=== PATIENT | male | born 1970 | race Caucasian/White ===

== ENCOUNTER 2019-11-07 12:45 | Emergency (ER) | payer OTHER, SELFPAY ==
[2019-11-07 13:09] VITALS: BP 101/66; PULSE 78; RESP 16; TEMP 36.6; O2SAT 99
--- NOTE | 2019-11-07 13:17 | ED.EAR ---
HPI - Ear Problem General Chief complaint: Ear Stated complaint: right ear iritation Time Seen by Provider: 11/07/19 13:17 Source: patient and RN notes reviewed History of Present Illness HPI Narrative: Patient is a 49-year-old male that presents the urgent care with complaints of right ear pain and ringing in the ear. Patient states that he has been using Debrox and Q-tips to try to disimpact the cerumen himself. Patient states that a while back he was told to get his ears cleaned out after failing a hearing test but since then has passed it. Denies of any discharge, fevers, nausea, vomiting. No other acute complaints. No acute distress noted. Patient had a plan of care. Related Data Home Medications Medication Instructions Recorded Confirmed lisinopril 40 mg PO DAILY 11/07/19 11/07/19 metoprolol succinate 100 mg PO DAILY 11/07/19 11/07/19 Allergies Allergy/AdvReac Type Severity Reaction Status Date / Time Penicillins Allergy Mild Loss of Unverified 11/07/19 13:06 Consciousness Review of Systems Review of Systems: Narrative: CONSTITUTIONAL: Denies fever, chills, or sweats. EYES: Denies visual changes, redness, or discharge. ENT: Reports of right otalgia with tinnitus CARDIOVASCULAR: Denies chest pain, palpitations, or edema. RESPIRATORY: Denies cough or dyspnea. GASTROINTESTINAL: Denies abdominal pain, nausea, vomiting, or diarrhea. GENITOURINARY: Denies dysuria or hematuria. SKIN: Denies rash or itching. MUSCULOSKELETAL: Denies back pain, joint pain, or myalgia. NEUROLOGIC: Denies headache, numbness, or weakness. All other systems reviewed are negative, except as documented in HPI. PMFSH Comments At the time of my signature, I reviewed and agree with the nursing past medical, surgical, social, and family history. There is no relevant family history pertinent to the patient complaint. Exam Narrative: Exam Narrative: GENERAL: This is a well-nourished, well-developed patient, in no apparent distress. HEAD: normocephalic, atraumatic. EYES: PERRL. Sclera clear/white. Vision is grossly intact. EARS: External ears normal, auditory canals clear and without drainage, unable to visualize right TM due to cerumen impaction, left TMs normal without perforation. Hearing grossly intact. NOSE: External nose normal with no obvious nasal discharge, nares without redness, no rhinorrhea. THROAT: Mucous membranes moist, posterior pharynx clear. NECK: Neck supple CARDIOVASCULAR: Regular rate and rhythm without murmurs, gallops, or rubs. RESPIRATORY: Clear to auscultation. Breath sounds equal bilaterally. No wheezes, rales, or rhonchi. SKIN: warm, intact with no suspicious lesions or rash, good texture and turgor. NEURO: awake, alert, and oriented to person, place and time. There were no obvious focal neurologic abnormalities. EXTREMITIES: No clubbing, cyanosis, or edema. Course Vital Signs Vital signs: Vital Signs Temperature 97.8 F 11/07/19 13:09 Pulse Rate 78 11/07/19 13:09 Respiratory Rate 16 11/07/19 13:09 Blood Pressure 101/66 11/07/19 13:09 Pulse Oximetry 99 11/07/19 13:09 Temperature 97.8 F 11/07/19 13:09 Pulse Rate 78 11/07/19 13:09 Respiratory Rate 16 11/07/19 13:09 Blood Pressure 101/66 11/07/19 13:09 Pulse Oximetry 99 11/07/19 13:09 Reviewed Procedures Ear Wax Removal Right Ear: Cerumenolytic Used: other (50-50 percent peroxide and warm water) Results: Re-examined: removal reattempted TM Examination: TM(s) intact, normal appearance Patient Tolerated Procedure: well Complications: no problems Technique: ear canal irrigated Additional Comments: Unable to remove cerumen impaction due to depth. Cerumen is very impacted against the membrane and explained to the patient the injury to the membrane is likely to occur if we continue to try to disimpact the cerumen. Patient verbalizes understanding. Patient tolerated procedure well.
== END 2019-11-07 14:20 | disposition home or self-care (01) ==
PROVIDERS: Emergency Provider Nurse Practitioner Family; PCP Nurse Practitioner Family
DX: H61.21 Impacted cerumen, right ear (principal); I10 Essential (primary) hypertension
CPT/HCPCS: 69209; 99212; G0463

== ENCOUNTER 2021-01-19 09:52 | Outpatient (CLI) | payer OTHER, SELFPAY ==
--- NOTE | ~2021-01-19 | XR_ITS ---
XR lumbar spine 2-3V DATE: 01/19/2021 10:08 INDICATION: Low back pain, chronic for one month TECHNIQUE: AP, lateral, coned lateral lumbosacral views COMPARISON: None FINDINGS: Mild levoscoliosis of the lumbar spine. There is mild degenerative spurring throughout the spine but the lumbar and lumbosacral interspaces a re relatively preserved. No fracture or bone destruction is evident. Included T11-L5 pedicles are intact. The sacroiliac joints are normal. IMPRESSION: Mild scoliosis Mild degenerative spurring of the lumbar spine Reviewed, dictated and finalized at location A.
== END 2021-01-19 09:53 | disposition home or self-care (01) ==
PROVIDERS: PCP Nurse Practitioner Family; Visit Provider Nurse Practitioner
DX: M54.5 Low back pain (principal)
CPT/HCPCS: 72100

== ENCOUNTER 2021-04-06 08:54 | Outpatient (CLI) | payer OTHER, SELFPAY ==
--- NOTE | ~2021-04-06 | MR_ITS ---
EXAMINATION: MR lumbar spine wo con DATE: 04/06/2021 10:13 INDICATION: Low back pain. TECHNIQUE: Magnetic resonance imaging (MRI) of the lumbar spine was performed without intravenous con trast. Sequences included sagittal T2-weighted FSE, sagittal T2-weighted FS FSE, sagittal T1-weighted FSE, and axial T2-weighted FSE. COMPARISON: Lumbar spine radiographs 01/19/2021 FINDINGS: There is 6 degrees levocurvature of lumbar spine. Vertebral body heights and intervertebral disc heights are normal. The distal spinal cord signal intensity is normal. The conus medullaris is at L1. The following disc levels are specifically discussed: L1-L2: The disc does not extend beyond the endplate margin. There is mild bilateral facet joint osteo arthritis. There is no neural foraminal stenosis. There is no central canal stenosis. L2-L3: The disc is bulging. There is mild bilateral facet joint osteoarthritis. There is mild bilater al neural foraminal stenosis. There is mild central canal stenosis. L3-L4: The disc is mildly bulging. There is mild bilateral facet joint osteoarthritis. There is mild bilateral neural foraminal stenosis. There is no central canal stenosis. L4-L5: The disc is bulging. There is moderate bilateral facet joint osteoarthritis. There is mild simran ateral neural foraminal stenosis. There is mild central canal stenosis. L5-S1: The disc does not extend beyond the endplate margin. There is mild bilateral facet joint osteo arthritis. There is no neural foraminal stenosis. There is no central canal stenosis. IMPRESSION: 1. Mild lumbar spondylosis. Reviewed, dictated and finalized at location A. IMPRESSION: 1. Mild lumbar spondylosis.
== END 2021-04-06 08:55 | disposition home or self-care (01) ==
LOC: ANHIMG 08:56
PROVIDERS: PCP Nurse Practitioner Family; Visit Provider Nurse Practitioner
DX: M54.5 Low back pain (principal); M47.816 Spondylosis without myelopathy or radiculopathy, lumbar region
CPT/HCPCS: 72148

== ENCOUNTER 2021-04-24 15:00 | Outpatient (RCR) | payer OTHER, SELFPAY ==
--- NOTE | 2021-02-02 13:52 | PTOPEVAL ---
Thank you for referring Toni Valentino to [facility].? The patient is scheduled to be seen for therapy?1-2 x/week for 5 weeks. Please review, sign, date and return this plan of care SEAN. I agree with and certify that the following plan of care is medically necessary. 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 He has been off work for 2 wks. Subjective Information He reports back pain for the Query Text:As Reported By Patient/ past 3 months. He c/o pain Family with trunk motion, bending forward, getting into small spots, lifting task. He has some pain with yardwork. He has pain with ADL's. Reports increased pain with prolonged sitting, walking and standing activities. Does not perform a stretching program. Diagnostic Tests X-Rays For This Problem Yes: Mild levoscoliosis of the lumbar spine. Pain Assessment Self Report Pain Assessment Bilateral Lower Back Reported Pain Level 8 Pain Description Radiating,Sharp Lowest Pain Intensity 3 Greatest Pain Intensity 8 Pain Aggravating Factors ADL's,Bending,Exercise/ Activity,Lifting,Sitting Pain Behaviors None Pain Score Pain Score 8: Self Report Cervical and Lumbar ROM Lumbar ROM Lumbar Flexion Active [place] Query Text:Hands to: Lateral Flexion mid-thigh region Query Text:Active Hands to: Lumbar ROM 50% of Normal Lumbar Comments with pain with all motions Cervical and Lumbar Muscle Testing Lumbar Strength Upper Abdominal Strength 4-Good- Lower Abdominal Strength 3+Fair+ Lower Extremity Muscle Strength Testing General Lower Extremity Strength Gross Lower Extremity Strength grossly 4/5 simran knee and hip muscles simran hip abd: 3/5 Muscle Length Testing Muscle Length Testing Two-Joint Hip Flexor Shortened Muscles Short (R) Iliopsoas,Short (L) Iliopsoas,Short (R) Rectus Femoris,Short (L) Rectus
--- NOTE | 2021-02-12 14:01 | PCPTNOTE ---
Patient called & cancelled scheduled appointment this date and appt on 02/12/21 due to copay cost.
--- NOTE | 2021-02-27 15:40 | PCPTNOTE ---
Patient called & cancelled scheduled appointment this date due to being unable to make it in.
--- NOTE | 2021-03-06 16:12 | PTOPEVAL ---
Thank you for referring Toni Valentino to [facility].? The patient is scheduled to be seen for therapy? 1 visit every other week due to copay for 4 additional visits. Please review, sign, date and return this plan of care SEAN. I agree with and certify that the following plan of care is medically necessary. 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 He has been off work for 2 wks. Subjective Information He reports continues to have Query Text:As Reported By Patient/ trouble getting into to small Family places. He c/o pain and pulling with lifting or carrying activities. Prior to 4 months ago he could lift 20- 50# without difficulty. HE is able to tolerate walking better, but increased pain with prolonged sitting. He is able to tolerate sitting for 30 minutes. He is performing some of his HEP daily, but not all of them. Pain Assessment Self Report Pain Assessment Bilateral Lower Back Reported Pain Level 7 Pain Description Aching,Sharp,Tender on Palpation Pain Frequency Continuous Lowest Pain Intensity 2 Greatest Pain Intensity 9 Pain Aggravating Factors ADL's,Bending,Exercise/ Activity,Lifting,Sitting, Walking Cervical and Lumbar ROM Lumbar ROM Lumbar Flexion Active [place] Query Text:Hands to: Lateral Flexion superior patellar region Query Text:Active Hands to: Lumbar Comments 75% with trunk flex/ext pain with all motions Cervical and Lumbar Muscle Testing Lumbar Strength Upper Abdominal Strength 3+Fair+ Lumbar Functional Strength Comments min trunk motion with seated marching, unable to maintain trunk in midline with single leg stance Lower Extremity Muscle Strength Testing General Lower Extremity Strength Gross Lower Extremity Strength grossly 5/5 simran knee ext and flex and hip flex.
--- NOTE | 2021-04-17 12:06 | PCPTNOTE ---
Patient called & cancelled scheduled appointment this date due to schedule conflict. He rescheduled his visit.
--- NOTE | 2021-04-25 07:08 | PTOPEVAL ---
Thank you for referring Toni Valentino to [facility] Toni has attended 9 therapy visits with inconsistent attendance of therapy. He demonstrates minimal progress or change with therapy services. He is inconsistent with performing his HEP. His goals are partially achieved at this time. See detailed summary below for information on function and progress. Additional skilled therapy services at not indicated. Please review, sign, date and return this discharge summary SEAN. I agree with and certify that the following plan of care is medically necessary. 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 MRI shows mild bulging disc with Mild lumbar spondylosis. He a visit planned to see the neurosurgeon. Subjective Information Reports he continues to have Query Text:As Reported By Patient/ increased back pain. He is Family performing his HEP 3-4x/wk. He is not lifting due to pain. He is able to walk for 15 minutes then stops due to back pain. HE will have radiating symptoms with the walking. He is having trouble sleeping due to pain with only 2-3 hours of sleep. Pain Assessment Bilateral Lower Back Reported Pain Level 6 Pain Description Aching,Radiating,Sharp,Tender on Palpation,Tightness Pain Frequency Continuous Lowest Pain Intensity 2 Greatest Pain Intensity 8 Pain Aggravating Factors ADL's,Bending,Exercise/ Activity,Lifting,Sitting, Walking,Weight Bearing/ Standing Cervical and Lumbar ROM Lumbar ROM Lumbar Flexion Active [place]:Hands to: Lateral Flexion superior patellar region:Active Hands to: Lumbar Comments 75% with trunk flex/ext sharp pain with all motions, denies muscle pain Lower Extremity Muscle Strength Testing General Lower Extremity Strength Gross Lower Extremity Strength simran hip ext: 4/5 simran hip abd: 3/5 Muscle Length Testing Muscle Length Testing Two-Joint Hip Flexor Shortened Muscles Short (R
== END 2021-05-03 23:59 | disposition home or self-care (01) ==
LOC: ANHPT 15:00
PROVIDERS: PCP Nurse Practitioner Family; Visit Provider Family Medicine
DX: M54.5 Low back pain (principal)
CPT/HCPCS: 97014; 97110; 97140; 97162; G0283

== ENCOUNTER 2022-04-18 09:58 | Outpatient (CLI) | payer OTHER, SELFPAY ==
--- NOTE | 2022-04-18 11:30 | NEURO_ITS ---
Impression: # Complains of lower back pain radiating to lower extremities. # Normal nerve conduction study except absent bilateral superficial peroneal nerve responses. # Normal needle/EMG exam. # Clinical correlation recommended. Nerve Conduction Studies Anti Sensory Summary Table Stim Site NR Peak (ms) P-T Amp (?V) Site1 Site2 Delta-P (ms) Dist (cm) Amado (m/s) Left Sup Fibular Anti Sensory (Ant Lat Mall) NO RESPONSE 14 cm NR 14 cm Ant Lat Mall 16.0 Right Sup Fibular Anti Sensory (Ant Lat Mall) NO RESPONSE 14 cm NR 14 cm Ant Lat Mall 16.0 Left Sural Anti Sensory (Lat Mall) Calf 3.3 28.6 Calf Lat Mall 3.3 16.0 48 Right Sural Anti Sensory (Lat Mall) Calf 3.8 13.3 Calf Lat Mall 3.8 16.0 42 Motor Summary Table Stim Site NR Onset (ms) O-P Amp (mV) Site1 Site2 Delta-0 (ms) Dist (cm) [place]ado (m/s) Left Peroneal Motor (Vastus Med) Ankle 4.2 4.2 Popit Ankle 8.3 40.0 48 Popit 12.5 3.9 Right Peroneal Motor (Vastus Med) Ankle 4.4 6.5 Popit Ankle 7.9 38.0 48 Popit 12.3 4.8 Left Tibial Motor (Abd Beltre Brev) Ankle 5.3 3.5 Knee Ankle 9.6 45.0 47 Knee 14.9 3.5 Right Tibial Motor (Abd Beltre Brev) Ankle 4.7 4.6 Knee Ankle 9.1 41.0 45 Knee 13.8 2.9 F Wave Studies NR F-Lat (ms) L-R F-Lat (ms) Left Peroneal (Mrkrs) (EDB) 52.34 1.02 Right Peroneal (Mrkrs) (EDB) 53.36 1.02 Left Tibial (Mrkrs) (Abd Hallucis) 52.96 0.88 Right Tibial (Mrkrs) (Abd Hallucis) 52.08 0.88 EMG Side Muscle Nerve Root Ins Act Fibs Amp Dur Recrt Comment Right AntTibialis Dp Br Fibular L4-5 Nml Nml Nml Nml Nml Right Gastroc Tibial S1-2 Nml Nml Nml Nml Nml Right Fibularis Long Sup Br Fibular L5-S1 Nml Nml Nml Nml Nml Right Flex Dig Long Tibial L5-S2 Nml Nml Nml Nml Nml Right Ext Dig Brev Dp Br Fibular L5, S1 Nml Nml Nml Nml Nml Left AntTibialis Dp Br Fibular L4-5 Nml Nml Nml Nml Nml Left Gastroc Tibial S1-2 Nml Nml Nml Nml Nml Left Fibularis Long Sup Br Fibular L5-S1 Nml Nml Nml Nml Nml Left Flex Dig Long Tibial L5-S2 Nml Nml Nml Nml Nml Left Ext Dig Brev Dp Br Fibular L5, S1 Nml Nml Nml Nml Nml MTDD
== END 2022-04-18 09:59 | disposition home or self-care (01) ==
LOC: ANHNEURO 10:01
PROVIDERS: PCP Family Medicine; Visit Provider Nurse Practitioner Family
DX: M54.50 Low back pain, unspecified (principal)
CPT/HCPCS: 95886; 95910

== ENCOUNTER 2022-07-07 20:49 | Emergency (ER) | payer OTHER, SELFPAY ==
[2022-07-07 20:50] VITALS: BP 160/102; PULSE 71; RESP 20; TEMP 36.1; O2SAT 100
[2022-07-07] MEDS: CLINDAMYCIN HCL 150 MG CAP 600 MG PO (21:11)
--- NOTE | 2022-07-07 21:37 | ED.DENTAL ---
HPI - Dental/Oral General Chief complaint: Dental/Oral <Tuyet Mack PA-C - Last Filed: 07/08/22 01:52> Stated complaint: jaw pain/ tooth pain <LATRICE Goldman Last Filed: 07/08/22 01:52> Time Seen by Provider: 07/07/22 20:55 <LATRICE Goldman Last Filed: 07/08/22 01:52> History of Present Illness HPI Narrative: Patient is a 51-year-old male here for evaluation of acute on chronic right upper dental pain. Patient states that his tooth has been aching for years , but has been increased in severity over the past 3 months. Over the past 2 days, his pain has been intolerable. He has been taking ibuprofen and Tylenol in addition to [place] without significant relief. Denies any trismus, drooling, fevers, chills, nausea or vomiting. He does have a dentist but has not been in contact with him because he does not have insurance. <LATRICE Goldman Last Filed: 07/08/22 01:52> Related Data Home medications: Home Medications Medication Instructions Recorded Confirmed fluticasone propionate 50 1 spray intranasal DAILY PRN 01/06/20 02/20/22 mcg/actuation nasal spray,suspension (Allergy Relief (fluticasone)) gabapentin 300 mg capsule 300 mg PO QHS 02/20/22 02/20/22 hydrocodone 5 mg-acetaminophen 325 1 tablet PO Q12H PRN 02/20/22 02/20/22 mg tablet nortriptyline 25 mg capsule 25 mg PO DAILY 02/20/22 02/20/22 <LATRICE Goldman Last Filed: 07/08/22 01:52> Allergies/adverse reactions: Allergies Allergy/AdvReac Type Severity Reaction Status Date / Time Penicillins Allergy Mild Loss of Verified 07/07/22 21:03 Consciousness <LATRICE Goldman Last Filed: 07/08/22 01:52> Review of Systems Review of Systems: Gen.: Denies fevers or chills Eyes: Denies eye pain or visual change ENT: Reports dental pain. Respiratory: Denies shortness of breath or cough CV: Denies chest pain or palpitations GI: Denies abdominal pain nausea, emesis or diarrhea denies burning, urgency, frequency or hematuria Musculoskeletal: Denies back pain or muscle pain Neuro: Denies numbness, tingling, weakness or focal weakness Skin: Denies rash Except as documented, all other systems reviewed and negative <Tuyet Mack PA-C - Last Filed: 07/08/22 01:52> PMFSH Past Medical History Medical History: Medical History Allergic rhinitis Anxiety Asthma DJD (degenerative joint disease), lumbar Essential (primary) hypertension Hyperlipidemia <Tuyet Mack PA-C - Last Filed: 07/08/22 01:52> Surgical History Surgical History: Surgical History No history of previous surgery <Tuyet Mack PA-C - Last Filed: 07/08/22 01:52> Family History Family History: Family History Father Hypertension Other Diabetes mellitus Family history of allergic disorder <Tuyet Mack PA-C - Last Filed: 07/08/22 01:52> Social History Social History: Social History Smoking status: Never smoker Second hand tobacco smoke exposure: No Alcohol intake: current Alcohol use details: less than 1 drink per week Substance use: never <Tuyet Mack PA-C - Last Filed: 07/08/22 01:52> Exam Narrative: APPEARANCE: Well appearing, no pain in distress, well-nourished. Head: Normocephalic and atraumatic. EYES: PERRLA/EOMI, conjunctivae clear NOSE: No nasal drainage EARS: External ear normal in appearance THROAT: Tooth #1 has dental caries. Dental caries noted throughout mouth. No trismus. No SECY or RTA visualized. NECK: No significant soft tissue swelling to neck. Supple. No adenopathy, no masses. RESPIRATORY: Airway patent, respirations nonlabored. C
== END 2022-07-07 21:49 | disposition home or self-care (01) ==
PROVIDERS: Emergency Provider Preventive Medicine Aerospace Medicine; PCP Family Medicine
DX: K08.89 Other specified disorders of teeth and supporting structures (principal); J45.909 Unspecified asthma, uncomplicated; E78.5 Hyperlipidemia, unspecified; I10 Essential (primary) hypertension; M47.816 Spondylosis without myelopathy or radiculopathy, lumbar region; F41.9 Anxiety disorder, unspecified
CPT/HCPCS: 64999; 99283; A9270

== ENCOUNTER 2023-12-24 10:34 | Outpatient (CLI) | payer OTHER, SELFPAY ==
--- NOTE | ~2023-12-24 | MR_ITS ---
EXAMINATION: MR lumbar spine wo con DATE: 12/24/2023 11:09 INDICATION: Lumbago. TECHNIQUE: Magnetic resonance imaging (MRI) of the lumbar spine was performed without intravenous con trast. Sequences included sagittal T2-weighted FSE, sagittal T2-weighted FS FSE, sagittal T1-weighted FSE, and axial T2-weighted FSE. COMPARISON: Lumbar spine MRI 04/06/2021 FINDINGS: Bone alignment is normal. There is mild chronic anterior wedging of T12 and L1 vertebral jia dies. Intervertebral disc heights are normal. The distal spinal cord signal intensity is normal. The conus medullaris is at T12-L1. There is a 7 mm cyst in left kidney. The following disc levels are spe cifically discussed: L1-L2: The disc does not extend beyond the endplate margin. There is moderate bilateral facet joint o steoarthritis. There is no neural foraminal stenosis. There is no central canal stenosis. L2-L3: The disc is bulging and has an annular fissure. There is moderate right and mild left facet mavis int osteoarthritis. There is mild bilateral neural foraminal stenosis. There is mild central canal st enosis. L3-L4: The disc is bulging and has an annular fissure. There is moderate bilateral facet joint osteoa rthritis. There is mild bilateral neural foraminal stenosis. There is mild central canal stenosis. L4-L5: The disc is bulging and has an annular fissure. There is moderate right and severe left facet joint osteoarthritis. There is mild bilateral neural foraminal stenosis. There is mild central canal stenosis. L5-S1: The disc does not extend beyond the endplate margin. There is moderate bilateral facet joint o steoarthritis. There is mild left neural foraminal stenosis. There is no central canal stenosis. IMPRESSION: 1. Mild lumbar spondylosis. Reviewed, dictated and finalized at location A. IMPRESSION: 1. Mild lumbar spondylosis.
== END 2023-12-24 10:35 | disposition home or self-care (01) ==
PROVIDERS: PCP Family Medicine; Visit Provider Nurse Practitioner Family
DX: M47.896 Other spondylosis, lumbar region (principal)
CPT/HCPCS: 72148

== ENCOUNTER 2024-01-15 10:49 | Outpatient (CLI) | payer MEDICARE, MEDICAID, SELFPAY ==
[2024-01-15 11:39] LABS: LDL Cholesterol Direct 161 mg/dL
[2024-01-15 11:44] LABS: Vitamin D 25 Hydroxy 50.6 ng/mL
[2024-01-15 11:47] LABS: Basophils Percent Auto 0.6 % (0.2-1.2); Eosinophils Absolute Auto 0.2 K/mm3 (0-0.3); Eosinophils Percent Auto 2.7 % (0-4.4); Hematocrit 44.8 % (42.0-52.0); Hemoglobin 14.8 g/dL (14.0-18.0); Immature Granulocyte Absolute 0.01 K/mm3 (0.00-0.031); Immature Granulocyte Percent A 0.1 % (0-0.5); Lymphocytes Absolute Auto 2.37 K/mm3 (0.9-3.2); Mean Corpuscular Volume 90.9 fl (80-100); Mean Platelet Volume 10.1 fl (7.4-10.4); Monocytes Absolute Auto 0.6 K/mm3 (0.1-0.6); Neutrophils Absolute Auto 3.8 K/mm3 (1.3-6.7); Neutrophils Percent Auto 54.6 % (45.5-73.1); Platelet Count Result 281 k/mm3 (150-375); Red Blood Count 4.93 M/mm3 (4.6-6.20); Red Cell Distribution Width 12.5 % (11.5-14.5)
[2024-01-15 11:58] LABS: Prostate Specific Antigen 0.8 ng/mL (< OR = 4.0)
[2024-01-15 14:28] LABS: Alanine Aminotransferase 34 U/L (6-50); Albumin Level 4.9 g/dL (3.5-5.1); Alkaline Phosphatase 96 U/L (38-126); Anion Gap 10 mmol/L (4-12); Aspartate Amino Transferase 32 U/L (17-59); Bilirubin,Total 0.9 mg/dL (0.2-1.3); Blood Urea Nitrogen 16 mg/dL (9-20); Calcium 9.5 mg/dL (8.4-10.2); Carbon Dioxide 21 mmol/L (22-30); Chloride 106 mmol/L (98-107); Cholesterol 227 mg/dL (0-200); Estimated Glomerular Filt Rate > 60; Glucose 118 mg/dL (65-110); HDL Direct 40 mg/dL; Sodium 137 mmol/L (137-145); Triglycerides 164 mg/dL (<150)
== END 2024-01-15 10:50 | disposition home or self-care (01) ==
LOC: ANHLAB 10:49
PROVIDERS: PCP Family Medicine; Visit Provider Family Medicine
DX: M47.816 Spondylosis without myelopathy or radiculopathy, lumbar region (principal); E55.9 Vitamin D deficiency, unspecified; Z12.5 Encounter for screening for malignant neoplasm of prostate; Z00.00 Encounter for general adult medical examination without abnormal findings; E78.5 Hyperlipidemia, unspecified; I10 Essential (primary) hypertension
CPT/HCPCS: 36415; 80053; 80061; 82306; 84153; 84443; 85025; G0103